=== PATIENT | female | born 1990 | race Caucasian/White ===

== ENCOUNTER 2023-10-17 05:39 | Emergency (ER) | payer OTHER ==
[~2023-10-17] VITALS: Ht 162.6 cm; Wt 57.5 kg
[2023-10-17 05:49] VITALS: BP 115/85; PULSE 84; RESP 16; TEMP 98.1; O2SAT 98
[2023-10-17] MEDS: HYDROcodone-ACET 5/325MG TAB PO ONE (07:48)
[2023-10-17] MEDS ORDERED: IBUP1TAB5 PO (08:14)
== END 2023-10-17 08:17 | disposition home or self-care (01) ==
LOC: ER 05:39
DX: S60.221A Contusion of right hand, initial encounter (principal); F17.210 Nicotine dependence, cigarettes, uncomplicated; F12.90 Cannabis use, unspecified, uncomplicated; X58.XXXA Exposure to other specified factors, initial encounter; Y93.89 Activity, other specified; Y92.89 Other specified places as the place of occurrence of the external cause; Y99.8 Other external cause status
CPT/HCPCS: 29125; 73130